=== PATIENT | male | born 1980 | race Caucasian/White ===

== ENCOUNTER → 2017-05-23 | Outpatient (CLI) | payer OTHER | END | disposition home or self-care (01) | LOC: RAD 11:22 | DX: M46.02 Spinal enthesopathy, cervical region (principal); M46.04 Spinal enthesopathy, thoracic region; M46.06 Spinal enthesopathy, lumbar region; M47.896 Other spondylosis, lumbar region; M48.061 Spinal stenosis, lumbar region without neurogenic claudication | CPT/HCPCS: 72050; 72072; 72100 ==

== ENCOUNTER 2018-11-27 10:42 | Emergency (ER) | payer SELFPAY ==
[~2018-11-27] VITALS: Ht 167.6 cm; Wt 107.0 kg
[~2018-11-27 10:42] MED LIST: DEXT20TA24 PO; HYDR-3135 PO; TIZA4TAB2 PO
[2018-11-27 11:15] LABS: BILIRUBIN,URINE NEGATIVE (NEG); CLARITY,URINE CLEAR; NITRITE,URINE NEGATIVE (NEG); PROTEIN,URINE NEGATIVE (NEG-TRACE); UROBILINOGEN,URINE 0.2 mg/dL (0.2 mg/dL)
[2018-11-27 11:20] LABS: BARBITURATES NEG (NEG); BENZODIAZEPINES NEG (NEG); CANNABINOIDS NEG (NEG); COCAINE NEG (NEG); METHADONE NEG (NEG); OPIATES NEG (NEG); PHENCYCLIDINE NEG (NEG)
[2018-11-27 11:22] LABS: AMPHETAMINE/METHAMPHETAMINE NEG (NEG)
--- NOTE | 2018-11-27 11:23 | RAD ---
CHEST PA LATERAL CLINICAL INDICATION: Left chest pain. COMPARISON: None FINDINGS: Heart is normal in size. Lungs are clear. No pneumothorax or pleural effusion. Visualized bony thorax within normal limits. IMPRESSION: No acute pulmonary process. Electronically signed by: Ranjeet Mcconnell DO (11/27/2018 11:20 AM) [id number]
[2018-11-27 11:24] LABS: BASO # 0.1 x10^3/uL (0.0-0.2); BASO % 1 % (0-3); EOS # 0.1 x10^3/uL (0.0-0.7); EOS % 1 % (0-3); HEMATOCRIT 47.3 % (39.0-53.0); HEMOGLOBIN 16.3 g/dL (13.0-17.5); LYMPH # 4.1 x10^3/uL (1.0-4.8); LYMPH % 45 % (24-48); MEAN CORPUSCULAR HEMOGLOBIN 32 pg (25-35); MEAN CORPUSCULAR HGB CONC 35 g/dL (31-37); MEAN CORPUSCULAR VOLUME 94 fL (79-100); MONO # 0.9 x10^3/uL (0.0-1.1); MONO % 10 % (0-9); NEUT # 3.9 x10^3/uL (1.8-7.7); NEUT % 43 % (31-73); PLATELET COUNT 197 x10^3/uL (140-400); RED BLOOD COUNT 5.05 x10^6/uL (4.30-5.70); WHITE BLOOD COUNT 9.2 x10^3/uL (4.0-11.0)
--- NOTE | 2018-11-27 11:28 | EKG ---
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
[2018-11-27 11:32] LABS: BACTERIA,URINE 0 /HPF (0-FEW); COLOR,URINE COLORLESS; RBC,URINE RARE /HPF (0-2); WBC,URINE RARE /HPF (0-4)
[2018-11-27 11:33] LABS: PROTHROMBIN TIME PATIENT 13.2 SEC (11.7-14.0)
[2018-11-27 11:35] LABS: CALCIUM 9.7 mg/dL (8.5-10.1); CREATININE 0.8 mg/dL (0.7-1.3); GFR 109.4; POTASSIUM 3.7 mmol/L (3.5-5.1)
[2018-11-27 11:40] LABS: ALBUMIN/GLOBULIN RATIO 0.9 (1.0-1.7); MAGNESIUM 1.8 mg/dL (1.8-2.4); TOTAL BILIRUBIN 0.3 mg/dL (0.2-1.0); TOTAL PROTEIN 8.6 g/dL (6.4-8.2)
[2018-11-27 11:43] LABS: D-DIMER < 0.27 ug/mlFEU (0.00-0.50)
[2018-11-27] MEDS ORDERED: KETOROLAC 30 MG/ML VIAL. IV ONE (12:30)
[2018-11-27 13:00] VITALS: BP 162/79
--- NOTE | 2018-11-27 13:07 | PHYS DOC ---
Past Medical History Past Medical History: Abscess Past Surgical History: Other Additional Past Surgical Histo: R leg surgery, sx on R arm to remove infection Alcohol Use: Heavy Additional Information: drinks everyday,what ever he can drink Drug Use: None Adult General Chief Complaint Chief Complaint: FLANK PAIN HPI HPI Patient is a 38 year old male with history of alcohol abuse who presents with complaining of left lower chest pain. Patient complaining of left lateral chest wall pain for the last 3 weeks as a constant and sharp pain and rated his pain 10 over 10 without nausea and vomiting, shortness of breath, fever and chills. Patient said the pain getting worse with movement. Patient states he drinks 2 pints of 99% alcohol every day and his last alcohol was yesterday. Patient denies suicidal or homicidal ideation and pressure. Review of Systems Review of Systems Constitutional: Denies fever or chills [] Eyes: Denies change in visual acuity, redness, or eye pain [] HENT: Denies nasal congestion or sore throat [] Respiratory: Denies cough or shortness of breath [] Cardiovascular: No additional information not addressed in HPI [] GI: Denies abdominal pain, nausea, vomiting, bloody stools or diarrhea [] : Denies dysuria or hematuria [] Musculoskeletal: Denies back pain or joint pain [] Integument: Denies rash or skin lesions [] Neurologic: Denies headache, focal weakness or sensory changes [] Endocrine: Denies polyuria or polydipsia [] All other systems were reviewed and found to be within normal limits, except as documented in this note. Current Medications Current Medications Current Medications Medications (Trade) Dose Ordered Sig/[facility] Start Time Stop Time Status Last Admin Dose Admin Ketorolac Tromethamine (Toradol 30mg Vial) 30 mg 1X ONCE 11/27/18 12:30 11/27/18 12:31 DC 11/27/18 12:09 30 MG Allergies Allergies Allergies Coded Allergies Type Severity Reaction Last Updated Verified No Known Drug Allergies 03/28/14 No Physical Exam Physical Exam Constitutional: Well well nourished, mild distress, non-toxic appearance, smell of alcohol on breath. [] HENT: Normocephalic, atraumatic. Eyes: PERRLA, EOMI, conjunctiva normal, no discharge. [] Neck: Normal range of motion, no tenderness, supple, no stridor. [] Cardiovascular:Heart rate regular rhythm, no murmur [] Lungs & Thorax: Bilateral breath sounds clear to auscultation , left lateral chest wall without emphysema or sign of injury[] Abdomen: Bowel sounds normal, soft, no tenderness, no masses, no pulsatile mas ses. [] Skin: Warm, dry, no erythema, no rash. [] Back: No tenderness, no CVA tenderness. [] Extremities: No tenderness, no cyanosis, no clubbing, ROM intact, no edema. [] Neurologic: Alert and oriented X 3, no focal deficits noted. [] Psychologic: Affect anxious, mood normal. [] Current Patient Data Vital Signs Vital Signs Date Time Temp Pulse Resp B/P (MAP) Pulse Ox O2 Delivery O2 Flow Rate FiO2 11/27/18 13:00 82 162/79 (106) 96 Room Air 11/27/18 10:48 98.0 20 98.0 Lab Values Laboratory Tests Test 11/27/18 11:05 11/27/18 11:10 11/27/18 13:23 Urine Collection Type Unknown Urine Color Colorless Urine Clarity Clear Urine pH 6.0 Urine Specific [place] <=1.005 Urine Protein Negative mg/dL (NEG-TRACE) Urine Glucose (UA) 500 mg/dL (NEG) Urine Ketones (Stick) Negative mg/dL (NEG) Urine Blood Negative (NEG) Urine Nitrite Negative (NEG) Urine Bilirubin Negative (NEG) Urine Urobilinogen Dipstick 0.2 mg/dL (0.2 mg/dL) Urine Leukocyte Esterase Negative (NEG) Urine RBC Rare /HPF (0-2) Urine WBC Rare /HPF (0-4) Urine Squamous Epithelial Cells None /LPF Urine Bacteria 0 /HPF (0-FEW) Urine Opiates Screen Neg (NEG) Urine Methadone Screen Neg (NEG) Urine Barbiturates Neg (NEG) Urine Phencyclidine Screen Neg (NEG) Urine Amphetamine/Methamphetamine Neg (NEG) Urine Benzodiazepines Screen Neg (NEG) Urine Cocaine Screen Neg (NEG) Urine Cannabinoids Screen Neg (NEG) Urine Ethyl Alcohol Pos (NEG) White Blood Count 9.2 x10^3/uL (4.0-11.0) Red Blood Count 5.05 x10^6/uL (4.30-5.70) Hemoglobin 16.3 g/dL (13.0-17.5) Hematocrit 47.3 % (39.0-53.0) Mean Corpuscular Volume 94 fL (79-100) Mean Corpuscular Hemoglobin 32 pg (25-35) Mean Corpuscular Hemoglobin Concent 35 g/dL (31-37) Red Cell Distribution Width 14.0 % (11.5-14.5) Platelet Count 197 x10^3/uL (140-400) Neutrophils (%) (Auto) 43 % (31-73) Lymphocytes (%) (Auto) 45 % (24-48) Monocytes (%) (Auto) 10 % (0-9) H Eosinophils (%) (Auto) 1 % (0-3) Basophils (%) (Auto) 1 % (0-3) Neutrophils # (Auto) 3.9 x10^3/uL (1.8-7.7) Lymphocytes # (Auto) 4.1 x10^3/uL (1.0-4.8) Monocytes # (Auto) 0.9 x10^3/uL (0.0-1.1) Eosinophils # (Auto) 0.1 x10^3/uL (0.0-0.7) Basophils # (Auto) 0.1 x10^3/uL (0.0-0.2) Prothrombin Time 13.2 SEC (11.7-14.0) Prothrombin Time INR 1.0 (0.8-1.1) D-Dimer (Patti) < 0.27 ug/mlFEU Sodium Level 139 mmol/L (136-145) Potassium Level 3.7 mmol/L (3.5-5.1) Chloride Level 101 mmol/L (98-107) Carbon Dioxide Level 24 mmol/L (21-32) Anion Gap 14 (6-14) Blood Urea Nitrogen 11 mg/dL (8-26) Creatinine 0.8 mg/dL (0.7-1.3) Estimated GFR (Cockcroft-Gault) 109.4 BUN/Creatinine Ratio 14 (6-20) Glucose Level 374 mg/dL (70-99) H Calcium Level 9.7 mg/dL (8.5-10.1) Magnesium Level 1.8 mg/dL (1.8-2.4) Total Bilirubin 0.3 mg/dL (0.2-1.0) Aspartate Amino Transferase (AST) 73 U/L (15-37) H Alanine Aminotransferase (ALT) 155 U/L (16-63) H Alkaline Phosphatase 96 U/L (46-116) Creatine Kinase 80 U/L (39-308) Troponin I Quantitative < 0.017 ng/mL (0.000-0.055) DJ-Jbl-P-Type Natriuretic Peptide 9 pg/mL (0-124) Total Protein 8.6 g/dL (6.4-8.2) H Albumin 4.0 g/dL (3.4-5.0) Albumin/Globulin Ratio 0.9 (1.0-1.7) L Lipase 628 U/L (73-393) H Ethyl Alcohol Level 354 mg/dL (0-10) H Glucose (Fingerstick) 290 mg/dL (70-99) H Laboratory Tests 11/27/18 11:10 Laboratory Tests 11/27/18 11:10 EKG EKG EKG interpreted by me. EKG at 1110 showed normal sinus rhythm at rate of 91, left axis, no acute ST and T-wave abnormalities. Radiology/Procedures Radiology/Procedures [][facility] [address] [place] [address] IMAGING REPORT Signed PATIENT: RUBIA MATHEW AACCOUNT: [id number] : 1980 LOCATION: ER AGE: 38 SEX: M EXAM STATUS: PRE ER ORD. PHYSICIAN: PAUL STORM MD REASON: left-sided chest pain PROCEDURE: CHEST PA & LATERAL CHEST PA LATERAL CLINICAL INDICATION: Left chest pain. COMPARISON: None FINDINGS: Heart is normal in size. Lungs are clear. No pneumothorax or pleural effusion. Visualized bony thorax within normal limits. IMPRESSION: No acute pulmonary process. Electronically signed by: Ranjeet Mcconnell DO (11/27/2018 11:20 AM) [facility] DICTATED and SIGNED BY: RANJEET MCCONNELL DO DATE: 11/27/18 1120 Course & Med Decision Making Course & Med Decision Making Pertinent Labs and Imaging studies reviewed. (See chart for details) Evaluation of patient in ER showed [age]-year-old male patient with history of alcohol abuse and diabetes mellitus and complaining of left-sided chest wall pain for several weeks. Patient had alcohol on breath and blood alcohol more than 300. Patient was more than 300 that gradually decreased . Patient requested detox protocol and was evaluated by PAT team staff and was placed to [facility]. I've spoken with the patient and/or caregivers. I've explained the patient's co ndition, diagnosis and treatment plan based on information available to me at this time. I've answered the patient's and/or caregivers questions and addressed any concerns. The patient and/or caregivers have a good understanding the patient's diagnosis, condition and treatment plan as can be expected at this point. Vital signs have been stabilized. The patient's condition is stable for discharge from the emergency department. The patient will pursue further outpatient evaluation with her primary care provider or other designated consulting physician as outlined in the discharge instructions. Patient and/or caregivers are agreeable to this plan of care and follow-up instructions have been explained in detail. The patient and/or caregivers have received these instructions in written format and expressed understanding of these discharge instructions. The patient and her caregivers are aware that if any significant change in condition or worsening of symptoms should prompt him to immediately return to this of the closest emergency department. If an emergent department is not readily available I would encourage him to call 911. Dragon Disclaimer Dragon Disclaimer This electronic medical record was generated, in whole or in part, using a voice recognition dictation system. Departure Departure Impression: Primary Impression: Alcohol abuse Additional Impressions: Chest wall pain Anxiety Elevated liver function tests Uncontrolled diabetes mellitus Disposition: 01 HOME, SELF-CARE (at 1306 to [facility]) Condition: IMPROVED Referrals: JOSSELYN TAMEZ MD (PCP) Patient Instructions: 2400 Calorie Diet for Diabetes Meal Planning, Alcohol Intoxication, Alcohol Problems, Diabetes Meal Planning Guide Additional Instructions: Drink plenty of liquids Follow-up with your primary care physician in 3-5 days Return to ER if not getting better Problem Qualifiers Additional Impressions: Uncontrolled diabetes mellitus Diabetes mellitus type: other specified (including JELLY) Glycemic state: with hyperglycemia Qualified Codes: E13.65 - Other specified diabetes mellitus with hyperglycemia PAUL STORM MD Nov 27, 2018 13:07
== END 2018-11-27 13:28 | disposition home or self-care (01) ==
LOC: ER 10:42
DX: E13.65 Other specified diabetes mellitus with hyperglycemia (principal); R07.89 Other chest pain; F41.9 Anxiety disorder, unspecified; R79.89 Other specified abnormal findings of blood chemistry; F10.20 Alcohol dependence, uncomplicated; Y90.8 Blood alcohol level of 240 mg/100 ml or more
CPT/HCPCS: 36415; 71046; 80053; 80307; 81001; 82550; 82962; 83690; 83735; 83880; 84484; 85025; 85379; 85610; 93005; 96374; 99285; G0480; J1885